=== PATIENT | male | born 1980 | race Caucasian/White ===

== ENCOUNTER → 2018-09-08 18:40 | Outpatient (CLI) | payer OTHER, SELFPAY ==
--- NOTE | 2018-09-08 18:45 | DI.RAD.S_ITS ---
PROCEDURE: XR THORACIC SPINE 3V INDICATIONS: Spinal tenderness TECHNIQUE: 3 views of the thoracic spine were acquired. COMPARISON: None. FINDINGS: Bones: No fractures or dislocations. No suspicious bony lesions. 12 pairs of ribs are noted, and appear intact where visualized. Soft tissues: No paravertebral stripe thickening. IMPRESSION: No wedge compression deformities. Dictated by: Marizol Jacques M.D. on 09/08/2018 at 19:42 Approved by: Marizol Jacques M.D. on 09/08/2018 at 19:42
--- NOTE | 2018-09-08 18:45 | DI.RAD.S_ITS ---
PROCEDURE: XR LUMBAR SPINE 2-3V INDICATIONS: Spinal tenderness TECHNIQUE: 3 views of the lumbar spine were acquired. COMPARISON: None. FINDINGS: Bones: 5 [id number] vertebrae are present. There is normal bony alignment. No vertebral body compression fractures. No suspicious bony lesions. Soft tissues: Overlying bowel gas pattern is normal. No suspicious soft tissue calcifications. IMPRESSION: No acute wedge compression deformities. Dictated by: Marizol Jacques M.D. on 09/08/2018 at 19:41 Approved by: Marizol Jacques M.D. on 09/08/2018 at 19:41
== END ==
PROVIDERS: Visit Provider Physician Assistant
DX: M54.5 Low back pain (principal)
CPT/HCPCS: 72072; 72100

== ENCOUNTER 2018-09-08 19:08 | Emergency (ER) | payer OTHER, SELFPAY ==
[2018-09-08 19:16] VITALS: BP 119/78; PULSE 97; RESP 20; TEMP 36.9; O2SAT 100
--- NOTE | 2018-09-08 19:33 | ED.BACK ---
HPI - Back Pain/Injury <JEFFERY Isabel - Last Filed: 09/08/18 22:15> General Chief Complaint: Back Pain/Injury Stated Complaint: BACK PAIN Time Seen by Provider: 09/08/18 19:33 Source: patient Mode of arrival: ambulatory Limitations: no limitations History of Present Illness HPI Narrative: 38-year-old healthy male everyday smoker here for complaint of pain into his lower back that started yesterday. He states that he was lifting heavy object to probably about 150 lb when he started feeling pain to his back. He denies any direct trauma to his back. He reports increased pain with motion of his lower back. He does feel like there is a tingling sensation into his right leg. He denies any loss of bladder or bowel control. He is ambulatory into the emergency room. He denies having history of lower back pain. He denies any other concerns or complaints. Related Data Home Medications Medication Instructions Recorded Confirmed [ESTROGEN MELISSA] #0 05/25/17 09/08/18 pantoprazole [Protonix] 40 mg PO QDAY #0 05/25/17 09/08/18 testosterone enanthate 300 mg #0 05/25/17 09/08/18 omeprazole 10 mg capsule,delayed 20 mg PO BID cap 09/08/18 09/08/18 release Previous Rx's Medication Instructions Recorded cyclobenzaprine 10 mg PO TID PRN #15 tab 09/08/18 cyclobenzaprine 10 mg tablet 10 mg PO BEDTIME #30 tab 09/08/18 hydrocodone-acetaminophen [Abingdon] 1 tab PO Q4-6H PRN #5 tab 09/08/18 Allergies Allergy/AdvReac Type Severity Reaction Status Date / Time No Known Allergies Allergy Uncoded 09/08/18 19:16 Review of Systems <JEFFERY Isabel - Last Filed: 09/08/18 22:15> Constitutional Denies chills, Denies fever(s), Denies lethargy and Denies weakness Eyes Denies change in vision, Denies eye discharge, Denies irritation and Denies loss of vision ENT Ears, Nose, Mouth, and Throat: Denies change in voice, Denies neck pain and Denies sore throat Cardiovascular Denies chest pain, Denies irregular heart rhythm, Denies lightheadedness, Denies palpitations, Denies dyspnea, Denies dyspnea on exertion and Denies orthopnea Respiratory Denies cough, Denies dyspnea, Denies dyspnea on exertion and Denies wheezing Gastrointestinal Gastrointestinal: Denies abdominal pain, Denies change in bowel habits, Denies diarrhea, Denies nausea and Denies vomiting Genitourinary Denies hematuria, Denies flank pain, Denies urinary incontinence and Denies urinary urgency Musculoskeletal Denies neck pain Comments: Lower back pain Integumentary/Breasts Denies pruritus, Denies erythema, Denies rash and Denies wounds Neurologic Denies confusion, Denies loss of vision and Denies weakness Psychiatric Denies anxiety, Denies confusion, Denies depression, Denies homicidal ideation and Denies suicidal ideation Endocrine Denies palpitations Hematologic/Lymphatic Denies easy bruising Allergic/Immunologic Denies wheezing Exam <JEFFERY Isabel - Last Filed: 09/08/18 22:15> Initial Vital Signs Initial Vital Signs: Vital Signs Temperature 98.4 F 09/08/18 19:16 Pulse Rate 97 H 09/08/18 19:16 Respiratory Rate 20 09/08/18 19:16 Blood Pressure 119/78 09/08/18 19:16 Pulse Oximetry 100 09/08/18 19:16 Const General: cooperative and well developed Nutritional Appearance: well nourished Orientation: alert, awake, oriented x3 and not confused HENVA Mouth: oral mucosae normal and moist mucous membranes Eyes Conjunctivae: conjunctivae normal Sclera: sclerae normal Pupils: PERRL EOM: EOM intact bilaterally Resp Effort & Inspection: normal respiratory effort, able to speak in complete sentences, no respiratory distress and no use of accessory muscles Auscultation: clear to auscultation bilaterally, no rales, no rhonchi and no wheezes Cardio Rate: regular rate Rhythm: regular rhythm Heart Sounds: no click, no gallops, no murmurs and no rubs Pulses: normal peripheral pulses GI Inspection: non-distended Palpation: soft, no hepatosplenomegaly, No guarding, No pulsatile mass and No tender Auscultation: normal bowel sounds Back/Spine/Pelvis Other: Tenderness on palpations to the paraspinals of bilateral upper lumbar area. Right lumbar area with muscle spasm. Distal sensation is intact. Distal pulses are intact. Distal range of motion is intact. <Juan F Moore DO - Last Filed: 09/09/18 01:36> Initial Vital Signs Initial Vital Signs: Vital Signs Temperature 98.4 F 09/08/18 19:16 Pulse Rate 97 H 09/08/18 19:16 Respiratory Rate 20 09/08/18 19:16 Blood Pressure 119/78 09/08/18 19:16 Pulse Oximetry 100 09/08/18 19:16 Course <JEFFERY Isabel - Last Filed: 09/08/18 22:15> Orders Ordered: Discontinued Medications Hydrocodone Bitart/Acetaminophen (Vicodin Prepack) 1 bottle MISC SEEINSTR ONE Stop: 09/08/18 20:04 Last Admin: 09/08/18 20:17 Dose: 1 bottle Cyclobenzaprine HCl (Flexeril 10 Mg Prepack) 1 bottle MISC SEEINSTR ONE Stop: 09/08/18 20:04 Last Admin: 09/08/18 20:17 Dose: 1 bottle Vital Signs - 8 hr 09/08/18 19:16 09/08/18 19:39 09/08/18 20:53 Temperature 98.4 F 98.4 F Pulse Rate 97 H 97 H 96 H Respiratory Rate 20 20 20 Blood Pressure 119/78 119/78 131/81 Pulse Oximetry 100 100 97 <Juan F Moore DO - Last Filed: 09/09/18 01:36> Orders Ordered: Discontinued Medications Hydrocodone Bitart/Acetaminophen (Vicodin Prepack) 1 bottle MISC SEEINSTR ONE Stop: 09/08/18 20:04 Last Admin: 09/08/18 20:17 Dose: 1 bottle Cyclobenzaprine HCl (Flexeril 10 Mg Prepack) 1 bottle MISC SEEINSTR ONE Stop: 09/08/18 20:04 Last Admin: 09/08/18 20:17 Dose: 1 bottle Vital Signs - 8 hr 09/08/18 19:16 09/08/18 19:39 09/08/18 20:53 Temperature 98.4 F 98.4 F Pulse Rate 97 H 97 H 96 H Respiratory Rate 20 20 20 Blood Pressure 119/78 119/78 131/81 Pulse Oximetry 100 100 97 MDM - Back Pain/Injury <JEFFERY Isabel - Last Filed: 09/08/18 22:15> MDM Narrative Medical decision making narrative: Signs and symptoms presents as muscle strain to the lumbar paraspinals. He is prescribed cyclobenzaprine help with any muscle spasm. [id number] ibuProfen as needed for any discomfort. If having any breakthrough pain small amount of Abingdon is prescribed. Patient is directed not to use the Abingdon in conjunction with a cyclobenzaprine. Follow up with primary care provider. Rest area. For any worsening symptoms return emergency room. Discharge Plan Departure Patient Disposition: Home Clinical Impression: Back pain Discharge Date/Time: 09/08/18 20:53 Interventions: ED Discharge Assessment Last Done: 09/08/18 20:53 Instructions: DI for Low Back Pain Activity Restrictions/Additional Instructions: Signs and symptoms presents as a strain into the muscles of the lower back. You have been prescribed a muscle relaxer called cyclobenzaprine to help with muscle tension and spasm. Use as directed. He advised that the muscle relaxer can make you drowsy no driving while on the muscle relaxer. Use [id number] ibuprofen along with a muscle relaxer to help with anti-inflammatory effects. Rest area. Small amount of Abingdon is prescribed for breakthrough pain not covered by the ibuprofen and a muscle relaxer. Use as directed do not use in conjunction with the cyclobenzaprine as they do not mix well. For any worsening symptoms return to the emergency room. Follow up with her primary care provider. Prescriptions: New cyclobenzaprine 10 mg tablet 10 mg PO TID PRN (Reason: muscle spasm) Qty: 15 RF: 0 hydrocodone-acetaminophen [Abingdon] 5-325 mg tablet 1 tab PO Q4-6H PRN (Reason: pain) Qty: 5 RF: 0 No Action omeprazole 10 mg capsule,delayed release(DR/EC) 20 mg PO BID RF: 0 cyclobenzaprine 10 mg tablet 10 mg PO BEDTIME Qty: 30 RF: 0 pantoprazole [Protonix] 40 MG tablet,delayed release (DR/EC) 40 mg PO QDAY Qty: 0 RF: 0 testosterone enanthate 200 MG/1 ML oil 300 mg Qty: 0 RF: 0 [ESTROGEN MELISSA] Qty: 0 RF: 0 Referrals: [facility] [Provider Group] <Juan F Moore DO - Last Filed: 09/09/18 01:36> Cosign ED Attending Kishan Attestation: I was immediately available in the department for consultation. Documentation has been reviewed. I agree with assessment and plan.
[2018-09-08 19:39] VITALS: BP 119/78; PULSE 97; RESP 20; TEMP 36.9; O2SAT 100
[2018-09-08] MEDS: CYCLOBENZAPRINE 10 MG PREPACK 1 BOTTLE MISC (20:17)
[2018-09-08] MEDS: HYDROCODONE/ACET 5/325 PREPACK 1 BOTTLE MISC (20:17)
[2018-09-08 20:53] VITALS: BP 131/81; PULSE 96; RESP 20; O2SAT 97
== END 2018-09-08 20:53 | disposition home or self-care (01) ==
PROVIDERS: Emergency Provider Nurse Practitioner Family
DX: M54.9 Dorsalgia, unspecified (principal); X50.0XXA Overexertion from strenuous movement or load, initial encounter
CPT/HCPCS: 99282